=== PATIENT | male | born 1985 | race Caucasian/White ===

== ENCOUNTER 2017-01-11 14:17 | Emergency (ER) | payer OTHER ==
[2017-01-11] MEDS ORDERED: KETOROLAC 60 MG/2 ML VIAL IM STA (14:53)
--- NOTE | 2017-01-11 14:53 | ED Physician Documentation ---
PD HPI UPPER EXT INJURY - Stated complaint Stated Complaint: SHOULDER PX - Chief complaint Chief Complaint: Ext Problem - History obtained from History obtained from: Patient - History of Present Illness Location: Right, Shoulder Type of injury: Fall Where [place] occurred: [place] Timing - onset: How many hours ago (6) Timing - duration: Hours (6) Timing - details: Abrupt onset Pain level max: 7 Pain level now: 5 Improved by: Rest Worsened by: Moving, Palpating Associated symptoms: No: Weakness, Numbness, Tingling, Swelling Contributing factors: No: Anticoagulated, Prior ortho surgery Similar symptoms before: Has not had sx before Recently seen: Not recently seen Review of Systems Neurologic: denies: Focal weakness, Numbness PD PAST MEDICAL HISTORY - Past Medical History Past Medical History: No - Past Surgical History Past Surgical History: No - Present Medications Home Medications: Ambulatory Orders Medication Instructions Recorded Confirmed Ibuprofen [Motrin] 800 mg PO Q8H PRN #30 tablet 01/11/17 Pantoprazole Sodium [Protonix] 20 mg PO DAILY 01/11/17 01/11/17 - Allergies Allergies/Adverse Reactions: Allergies Allergy/AdvReac Type Severity Reaction Status Date / Time No Known Drug Allergies Allergy Verified 01/11/17 14:24 - Social History Does the pt smoke?: No Smoking Status: Never smoker Does the pt drink ETOH?: No Does the pt have substance abuse?: No - Immunizations Immunizations are current?: Yes - POLST Patient has POLST: No PD ED PE NORMAL - Vitals Vital signs reviewed: Yes - General General: Alert and oriented X 3, No acute distress - HEENT HEENT: Moist mucous membranes - Neck Neck: Supple, no meningeal sign - Cardiac Cardiac: RRR - Respiratory Respiratory: No respiratory distress, Clear bilaterally - Derm Derm: Warm and dry - Extremities Extremities: Other (R shoulder - TTP over the distal clavicle. NVI. Limited ROM 2/2 Pain. Axillary nerve intact. ) - Neuro Neuro: Alert and oriented X 3 - Psych Psych: Normal mood, Normal affect Results - Vitals Vitals: Vital Signs - 24 hr 01/11/17 01/11/17 14:21 16:10 Temperature 36.5 C Heart Rate 80 82 Respiratory 14 Rate Blood Pressure 130/81 H 128/80 O2 Saturation 100 Oxygen O2 Source Room air - Rads (name of study) R shoulder xray Radiology: Prelim report reviewed, EMP read contemporaneously, See rad report ( Normal shoulder radiography. ) PD MEDICAL DECISION MAKING - ED course Complexity details: reviewed results, re-evaluated patient, considered differential, d/w patient ED course: Patient is a 31-year-old male who presents to the emergency department after falling and landing on the right shoulder today. No acute findings on x-ray. He was already placed in a sling at the [facility]. Will place on NSAIDs for home and follow-up with his doctor. Patient counseled regarding signs and symptoms for which I believe and urgent re-evaluation would be necessary. Patient with good understanding of and agreement to plan and is comfortable going home at this time This document was made in part using voice recognition software. While efforts are made to proofread this document, sound alike and grammatical errors may occur. Departure - Departure Disposition: 01 Home, Self Care Clinical Impression: Shoulder contusion Qualifiers: Encounter type: initial encounter Laterality: right Qualified Code(s): S40.011A - Contusion of right shoulder, initial encounter Condition: Good Instructions: ED Contusion Shoulder Follow-Up: your,doctor in 1 week [Other] Prescriptions: Ibuprofen [Motrin] 800 mg PO Q8H PRN #30 tablet PRN Reason: PAIN &/OR FEVER Comments: Return if you worsen. Wear the sling for the next 2-3 days and then follow up with your doctor for further care. Discharge Date/Time: 01/11/17 16:10
[2017-01-11] MEDS ORDERED: KETOROLAC 60 MG/2 ML VIAL ONE (15:05)
--- NOTE | 2017-01-11 15:45 | XRAY Preliminary Report ---
Exam: XR Shoulder 3 View RT IMPRESSION: Normal shoulder radiography. [facility] SITE ID: [id number]
--- NOTE | 2017-01-11 15:48 | XRAY Report ---
EXAM: RIGHT SHOULDER RADIOGRAPHY EXAM DATE: 01/11/2017 03:21 PM. CLINICAL HISTORY: Fall, R shoulder pain. COMPARISON: None. TECHNIQUE: 3 views. FINDINGS: Bones: Normal. No fracture or bone lesion. Joints: The glenohumeral and acromioclavicular joints are normal. Soft tissues: The visualized hemithorax is unremarkable. No soft tissue swelling. IMPRESSION: Normal shoulder radiography. [facility] Referring Provider Line: [phone] SITE ID: [id number]
[2017-01-11 16:11] VITALS: BP 128/80
== END 2017-01-11 16:10 | disposition home or self-care (01) ==
LOC: ED 14:17
DX: S40.011A Contusion of right shoulder, initial encounter (principal); W19.XXXA Unspecified fall, initial encounter; Y93.74 Activity, frisbee; Y92.830 Public park as the place of occurrence of the external cause
CPT/HCPCS: 96372; 99283

== ENCOUNTER 2019-05-07 14:05 | Emergency (ER) | payer OTHER ==
--- NOTE | 2019-05-07 14:16 | ED Physician Documentation ---
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 He was in an office setting without toxins etc. around. This was around 1130. He started to feel, some right sided weakness and numbness, and now just feels confused and out of it. This is never happened to him before. Is not associated with headache or nausea. No visual difficulties. He has mild right-sided chest pressure which is not painful. No recent travel. He does not have any health problems or take any medications.) Review of Systems Ten Systems: 10 systems reviewed and negative Constitutional: denies: Fever, Chills Eyes: denies: Loss of vision, Decreased vision, Photophobia, Discharge, Irritation Nose: denies: Rhinorrhea / runny nose, Congestion Throat: denies: Dental pain / toothache, Sore throat Cardiac: denies: Chest pain / pressure, Palpitations Respiratory: denies: Dyspnea, Cough GI: denies: Abdominal Pain, Nausea, Vomiting PD PAST MEDICAL HISTORY - Past Surgical History Past Surgical History: No - Allergies Allergies/Adverse Reactions: Allergies Allergy/AdvReac Type Severity Reaction Status Date / Time No Known Drug Allergies Allergy Verified 05/07/19 14:13 - Social History Does the pt smoke?: No Smoking Status: Never smoker Does the pt drink ETOH?: No Does the pt have substance abuse?: No - Immunizations Immunizations are current?: Yes - POLST Patient has POLST: No PD ED PE NORMAL - Vitals Vital signs reviewed: Yes - General General: Alert and oriented X 3, No acute distress - HEENT HEENT: PERRL, EOMI - Neck Neck: Supple, no meningeal sign, No bony TTP - Cardiac Cardiac: RRR, No murmur - Respiratory Respiratory: No respiratory distress, Clear bilaterally - Abdomen Abdomen: Normal bowel sounds, Soft, Non tender - Back Back: No CVA TTP, No spinal TTP - Derm Derm: Normal color, Warm and dry - Neuro Neuro: Alert and oriented X 3, No motor deficit, No sensory deficit, Normal speech, Other (NIH stroke scale equals 0) Eye Opening: Spontaneous Motor: Obeys Commands Verbal: Oriented GCS Score: 15 - Psych Psych: Normal mood, Normal affect Results - Vitals Vitals: Vital Signs - 24 hr 05/07/19 14:08 Temperature 36.8 C Heart Rate 84 Respiratory 18 Rate Blood Pressure 167/96 H O2 Saturation 98 Oxygen O2 Source Room air - EKG (time done) 1419 Rate: Rate (enter#) (78) Rhythm: NSR Angie: Normal Intervals: Normal CA QRS: Normal Ischemia: Normal ST segments Computer interpretation: Agree with computer - Labs Labs: Laboratory Tests 05/07/19 05/07/19 05/07/19 14:38 14:38 14:38 WBC 6.7 RBC 4.97 Hgb 16.0 Hct 45.2 MCV 90.9 MCH 32.2 H MCHC 35.4 RDW 12.0 Plt Count 211 MPV 9.8 Neut # (Auto) 5.2 Lymph # (Auto) 1.0 L Stark # (Auto) 0.4 Eos # (Auto) 0.0 Baso # (Auto) 0.0 Absolute Nucleated RBC 0.00 Nucleated RBC % 0.0 VBG pH VBG pCO2 VBG pO2 VBG HCO3 VBG Total CO2 VBG O2 Saturation VBG Base Excess Sodium 140 Potassium 4.1 Chloride 103 Carbon Dioxide 29 Anion Gap 8.0 BUN 13 Creatinine 1.1 Estimated GFR (MDRD) 77 L Glucose 114 H Calcium 8.9 Total Bilirubin 0.5 AST 19 ALT 16 Alkaline Phosphatase 48 Total Protein 7.6 Albumin 4.7 Globulin 2.9 Albumin/Globulin Ratio 1.6 Lipase 38 TSH 2.05 Salicylates < 6.0 Urine Opiates Screen Ur Oxycodone Screen Urine Methadone Screen Ur Propoxyphene Screen Acetaminophen < 10 L Ur Barbiturates Screen Ur Tricyclics Screen Ur Phencyclidine Scrn Ur Amphetamine Screen U Methamphetamines Scrn U Benzodiazepines Scrn Urine Cocaine Screen U Cannabinoids Screen 05/07/19 05/07/19 14:38 14:50 WBC RBC Hgb Hct MCV MCH MCHC RDW Plt Count MPV Neut # (Auto) Lymph # (Auto) Stark # (Auto) Eos # (Auto) Baso # (Auto) Absolute Nucleated RBC Nucleated RBC % VBG pH 7.330 VBG pCO2 54.9 H VBG pO2 29.1 VBG HCO3 28.3 H VBG Total CO2 30.0 H VBG O2 Saturation 61.5 VBG Base Excess 1.0 Sodium Potassium Chloride Carbon Dioxide Anion Gap BUN Creatinine Estimated GFR (MDRD) Glucose Calcium Total Bilirubin AST ALT Alkaline Phosphatase Total Protein Albumin Globulin Albumin/Globulin Ratio Lipase TSH Salicylates Urine Opiates Screen NEGATIVE Ur Oxycodone Screen NEGATIVE Urine Methadone Screen NEGATIVE Ur Propoxyphene Screen NEGATIVE Acetaminophen Ur Barbiturates Screen NEGATIVE Ur Tricyclics Screen NEGATIVE Ur Phencyclidine Scrn NEGATIVE Ur Amphetamine Screen NEGATIVE U Methamphetamines Scrn NEGATIVE U Benzodiazepines Scrn NEGATIVE Urine Cocaine Screen NEGATIVE U Cannabinoids Screen NEGATIVE - Rads (name of study) CT Head Radiology: EMP read contemporaneously (NAD) PD MEDICAL DECISION MAKING - ED course ED course: This is a young man who had a episode of dizziness and altered mental status today, however his examination and diagnostics are without pertinent positive findings. He felt completely better pretty much without any specific intervention. Departure - Departure Disposition: 01 Home, Self Care Clinical Impression: Episode of dizziness, Delirium Condition: Good Record reviewed to determine appropriate education?: Yes Instructions: ED Dizziness [facility] Comments: The cause of what happened today is unclear. CAT scan of your head, all the labs and your exam are normal. Return for new worsening symptoms. Your blood pressure was elevated today on check into the emergency department. This does not mean that you have hypertension, it is a common phenomenon to come to the emergency department and have elevated blood pressure. I recommend that you see your primary care physician within the week to have it rechecked when you are feeling better.
[2019-05-07 14:52] LABS: BASOPHILS % (AUTO) 0.4 %; EOSINOPHILS % (AUTO) 0.1 %; LYMPHOCYTES % (AUTO) 15.3 %; MEAN CORPUSCULAR HEMOGLOBIN 32.2 pg (27.0-31.0); MEAN CORPUSCULAR HGB CONC 35.4 g/dL (32.0-36.0); MEAN CORPUSCULAR VOLUME 90.9 fL (80.0-94.0); MEAN PLATELET VOLUME 9.8 fL (7.4-11.4); MONOCYTES # (AUTO) 0.4 10^3/uL (0.0-1.0); MONOCYTES % (AUTO) 6.5 %; NEUTROPHILS # (AUTO) 5.2 10^3/uL (1.5-6.6); NEUTROPHILS % (AUTO) 77.3 %; PLT - PLATELET COUNT 211 10^3/uL (130-450); RED BLOOD COUNT 4.97 10^6/uL (4.70-6.10); WHITE BLOOD COUNT 6.7 x10^3/uL (4.8-10.8)
--- NOTE | 2019-05-07 14:54 | CT Report ---
Reason: altered Procedure Date: 05/07/2019 Accession Number: [id number] / [id number] Procedure: CT - HEAD WO CPT Code: Final Report FULL RESULT: EXAM: CT HEAD EXAM DATE: 05/07/2019 02:28 PM. CLINICAL HISTORY: Altered. Dizziness. COMPARISON: None. TECHNIQUE: Multiaxial CT images were obtained from the foramen magnum to the vertex. Reformats: Sagittal and coronal. IV contrast: None. In accordance with CT protocol optimization, one or more of the following dose reduction techniques were utilized for this exam: automated exposure control, adjustment of mA and/or KV based on patient size, or use of iterative reconstructive technique. FINDINGS: Parenchyma: No intraparenchymal hemorrhage. No evidence of mass, midline shift, or CT findings of infarction. Kraus-white differentiation is distinct. Extraaxial Spaces: Normal for age. No subdural or epidural collections identified. Ventricles: Normal in size and position. Sinuses and Orbits: Imaged paranasal sinuses, orbits, and mastoids show no significant abnormality. Bones: No evidence of fracture or calvarial defect. Other: None. IMPRESSION: Normal head CT. [facility]
[2019-05-07 15:00] LABS: MUDS CUTOFF CONCENTRATIONS CUTOFF CONC BELOW:
[2019-05-07 15:02] LABS: VBG PCO2 54.9 mmHg (41-51); VBG PH 7.33 (7.31-7.41); VBG PO2 29.1 mmHg (25-47)
[2019-05-07 15:07] LABS: ACETAMINOPHEN < 10 ug/mL (10-30); ALBUMIN 4.7 g/dL (3.2-5.5); ALBUMIN/GLOBULIN RATIO 1.6 (1.0-2.2); ALKALINE PHOSPHATASE 48 IU/L (42-121); ALT ALANINE AMINOTRANSFERASE 16 IU/L (10-60); AST ASPARTATE AMINOTRANSFERASE 19 IU/L (10-42); BILIRUBIN,TOTAL 0.5 mg/dL (0.2-1.0); BUN - BLOOD UREA NITROGEN 13 mg/dL (6-20); CALCIUM 8.9 mg/dL (8.5-10.3); CARBON DIOXIDE - CO2 29 mmol/L (21-32); CHLORIDE 103 mmol/L (101-111); CREATININE 1.1 mg/dL (0.6-1.2); GFR - MDRD 77 (>89); GLUCOSE 114 mg/dL (70-100); LIPASE 38 U/L (22-51); SALICYLATE < 6.0 mg/dL; SODIUM 140 mmol/L (135-145); TOTAL PROTEIN 7.6 g/dL (6.7-8.2)
[2019-05-07 15:22] LABS: AMPHETAMINE SCREEN,URINE NEGATIVE (NEGATIVE); BENZODIAZEPINES SCREEN, URINE NEGATIVE (NEGATIVE); COCAINE SCREEN URINE NEGATIVE (NEGATIVE); METHADONE SCREEN, URINE NEGATIVE (NEGATIVE); METHAMPHETAMINES SCREEN, URINE NEGATIVE (NEGATIVE); OPIATE SCREEN, URINE NEGATIVE (NEGATIVE); OXYCODONE SCREEN, URINE NEGATIVE (NEGATIVE); PROPOXYPHENE SCREEN, URINE NEGATIVE (NEGATIVE); TRICYCLIC ANTIDEPRESSANT,URINE NEGATIVE (NEGATIVE)
[2019-05-07 15:45] VITALS: BP 99/81
== END 2019-05-07 15:50 | disposition home or self-care (01) ==
LOC: EDUNIT# → ED 14:05
DX: R42 Dizziness and giddiness (principal); R41.0 Disorientation, unspecified; R03.0 Elevated blood-pressure reading, without diagnosis of hypertension
CPT/HCPCS: 36415; 70450; 80053; 80306; 80307; 80329; 82803; 83690; 84443; 85025; 93005; 99283

== ENCOUNTER 2019-07-23 06:07 | Outpatient (CLI) | payer OTHER ==
[2019-07-23] MEDS ORDERED: GADOBUTROL 10 MMOL/10 ML VIAL ONE (07:20)
[2019-07-23] MEDS ORDERED: GADOBUTROL 10 MMOL/10 ML VIAL IVP ONE (09:24)
--- NOTE | 2019-07-23 10:21 | MRI Report ---
Reason: PAIN IN LEG Procedure Date: 07/23/2019 Accession Number: [id number] / [id number] Procedure: MRI - Cervical Spine W/WO CPT Code: Final Report FULL RESULT: EXAM: MRI CERVICAL SPINE WITHOUT AND WITH CONTRAST EXAM DATE: 07/23/2019 09:54 AM. CLINICAL HISTORY: Extremity weakness COMPARISON: None. TECHNIQUE: Multiplanar, multisequence T1-weighted and fluid-sensitive sequences of the cervical spine before and after administration of intravenous contrast. Other: None. IV contrast: Yes, without and with 8 mL Gadavist. FINDINGS: Neurologic Structures: The visualized posterior fossa structures are unremarkable. No signal abnormality in the visualized spinal cord. Alignment: No scoliosis or spondylolisthesis. Bone Marrow: No gross fractures or bone lesions. No marrow edema or abnormal enhancement. Interspace Levels/Facets: C1-C2: Unremarkable. C2-C3: Disk unremarkable. Mild facet hypertrophy. No central canal or neural foraminal narrowing. C3-C4: Unremarkable. C4-C5: Unremarkable. C5-C6: There is a mild disk bulge. There is mild central canal narrowing. There is mild left neural foraminal narrowing. C6-C7: There is a mild disk bulge. There is mild central canal narrowing. No neural foraminal narrowing. C7-T1: Disk unremarkable. No central canal narrowing. Mild bilateral facet hypertrophy. No significant neural foraminal narrowing. Spinal Canal: No enhancing lesions within the spinal canal. No epidural abscess. Musculature: Normal. No edema, enhancement, or fatty atrophy. Other: The paravertebral and prevertebral soft tissues are normal. IMPRESSION: 1. C5-C6 and C6-C7 mild disk bulges with mild central canal narrowing. 2. Mild left C5-C6 neural foraminal narrowing. 3. No abnormal enhancement. No cord signal abnormality. [facility]
--- NOTE | 2019-07-23 10:24 | MRI Report ---
Reason: PAIN IN LEG Procedure Date: 07/23/2019 Accession Number: [id number] / [id number] Procedure: MRI - Thoracic Spine W/WO CPT Code: Final Report FULL RESULT: EXAM: MRI THORACIC SPINE WITHOUT AND WITH CONTRAST EXAM DATE: 07/23/2019 09:55 AM. CLINICAL HISTORY: Extremity weakness COMPARISONS: None. TECHNIQUE: Multiplanar, multisequence T1-weighted and fluid-sensitive sequences of the thoracic spine from C7 to L1 before and after administration of intravenous contrast. Other: None. IV contrast: Yes, without and with 8 mL Gadavist. FINDINGS: Spinal Cord: No signal abnormality in the visualized spinal cord. Alignment: No scoliosis or spondylolisthesis. Bone Marrow: No gross fractures or bone lesion. No bone marrow edema or abnormal enhancement. Disk Levels/Facets: No focal disk protrusion. No central canal or neural foraminal narrowing. Spinal Canal: No enhancing masses within the spinal canal. No epidural abscess. Musculature: Normal. No edema, enhancement, or fatty atrophy. Other: The visualized lungs, mediastinum, and abdominal cavity are unremarkable. IMPRESSION: Unremarkable thoracic spine MRI. No cord signal abnormality. No abnormal enhancement. [facility]
== END 2019-07-23 06:08 | disposition home or self-care (01) ==
LOC: DI 06:07
PROVIDERS: ATTEND Family Medicine
DX: M47.812 Spondylosis without myelopathy or radiculopathy, cervical region (principal); M50.822 Other cervical disc disorders at C5-C6 level
CPT/HCPCS: 72156; 72157; A9585

== ENCOUNTER 2019-07-24 07:12 | Outpatient (CLI) | payer OTHER ==
[2019-07-24] MEDS ORDERED: GADOBUTROL 10 MMOL/10 ML VIAL ONE (07:23)
[2019-07-24] MEDS ORDERED: GADOBUTROL 10 MMOL/10 ML VIAL IVP ONE (08:00)
--- NOTE | 2019-07-24 11:25 | MRI Report ---
Reason: PAIN IN LEG Procedure Date: 07/24/2019 Accession Number: [id number] / [id number] Procedure: MRI - Lumbar Spine W/WO CPT Code: Final Report FULL RESULT: EXAM: MRI LUMBAR SPINE WITHOUT AND WITH CONTRAST EXAM DATE: 07/24/2019 08:09 AM. CLINICAL HISTORY: PAIN IN LEG. Bilateral leg weakness since April 2019. COMPARISONS: None. TECHNIQUE: Multiplanar, multisequence T1-weighted and fluid-sensitive sequences of the lumbar spine from T12 to S1 before and after administration of intravenous contrast. Other: None. IV contrast: 8 cc GADAVIST . FINDINGS: Neurologic Structures: The conus terminates at L1. The conus medullaris and cauda equina are unremarkable. Alignment: No scoliosis or spondylolisthesis. Bone Marrow: Five [id number] lumbar vertebral bodies are assumed. No gross fractures or bone lesions. No bone marrow replacement or abnormal enhancement. Disk Levels/Facets: T12-L1: Unremarkable. L1-L2: Unremarkable. L2-L3: Unremarkable. L3-L4: Unremarkable. L4-L5: Unremarkable. L5-S1: Unremarkable. Spinal Canal: No enhancing masses within the spinal canal. No epidural abscess. Musculature: Normal. No edema, abnormal enhancement, or fatty atrophy. Other: The visualized retroperitoneum is unremarkable. IMPRESSION: Unremarkable lumbar spine MRI. No abnormal enhancement. Comment: The following findings are so common in adults without low back pain that while we report their presence, they must be interpreted with caution and in the context of the clinical situation. (Reference Ceciliovik et al, Spine 2001) Prevalence of findings in patients without low back pain: Disk degeneration (any evidence): 92% Disk desiccation/T2 signal loss: 83% Disk height loss: 56% Disk bulge: 64% Disk protrusion: 32% Annular tear/high intensity zone: 38% [facility]
== END 2019-07-24 07:13 | disposition home or self-care (01) ==
LOC: DI 07:12
PROVIDERS: ATTEND Family Medicine
DX: M79.606 Pain in leg, unspecified (principal); R29.90 Unspecified symptoms and signs involving the nervous system
CPT/HCPCS: 72158; A9585

== ENCOUNTER 2019-07-28 13:00 | Emergency (ER) | payer OTHER ==
[2019-07-28 13:14] VITALS: BP 146/91
--- NOTE | 2019-07-28 13:36 | ED Physician Documentation ---
History of Present Illness - Stated complaint Stated Complaint: MUSCLE PX - Chief complaint Chief Complaint: General - History obtained from History obtained from: Patient - History of Present Illness Timing: Other (4 months) Pain level max: 7 Pain level now: 6 - Additonal information Additional information: 34-year-old male states that he has had burning sensation to his bilateral biceps and calves for the past 4 months. He has seen his doctor for this. Saw neurology for this. Had a normal cervical, thoracic and lumbar spine MRI recently. He is being referred to rheumatology for further work-up. He is only on Motrin at home. He is requesting something else for his symptoms. No changes to his symptoms. No fevers. No weakness. Nothing makes it better or worse Review of Systems Constitutional: denies: Fever, Chills Cardiac: denies: Chest pain / pressure Respiratory: denies: Cough Skin: denies: Rash Musculoskeletal: denies: Neck pain, Back pain Neurologic: denies: Headache PD PAST MEDICAL HISTORY - Past Surgical History Past Surgical History: No - Present Medications Home Medications: Ambulatory Orders Medication Instructions Recorded Confirmed Cyclobenzaprine [Flexeril] 10 mg PO TID PRN #20 tablet 07/28/19 Gabapentin 300 mg PO TID #60 capsule 07/28/19 Ibuprofen [Ibu] 600 mg PO BID PRN 07/28/19 07/28/19 predniSONE [Deltasone] 10 mg PO [id number] #42 tab 07/28/19 - Allergies Allergies/Adverse Reactions: Allergies Allergy/AdvReac Type Severity Reaction Status Date / Time No Known Drug Allergies Allergy Verified 07/28/19 13:09 - Social History Does the pt smoke?: No Smoking Status: Never smoker Does the pt drink ETOH?: No Does the pt have substance abuse?: No - Immunizations Immunizations are current?: Yes - POLST Patient has POLST: No PD ED PE NORMAL - Vitals Vital signs reviewed: Yes - General General: Alert and oriented X 3, No acute distress - HEENT HEENT: PERRL, Moist mucous membranes - Neck Neck: Supple, no meningeal sign - Cardiac Cardiac: RRR - Respiratory Respiratory: No respiratory distress, Clear bilaterally - Abdomen Abdomen: Soft, Non tender, Non distended - Derm Derm: Warm and dry - Extremities Extremities: No edema, No calf tenderness / cord - Neuro Neuro: Alert and oriented X 3, stocklayer 2-12 intact, No motor deficit, No sensory deficit, Normal speech Eye Opening: Spontaneous Motor: Obeys Commands Verbal: Oriented GCS Score: 15 - Psych Psych: Normal mood, Normal affect Results - Vitals Vitals: Vital Signs - 24 hr 07/28/19 13:09 Temperature 36.9 C Heart Rate 83 Respiratory 16 Rate Blood Pressure 146/91 H O2 Saturation 97 Oxygen O2 Source Room air PD MEDICAL DECISION MAKING - ED course Complexity details: considered differential, d/w patient ED course: Patient states that he has had extensive blood work and imaging performed. Will not repeat this today. We will trial him on muscle relaxants, steroid taper and gabapentin to see if this helps his symptoms at all. He will likely benefit from his rheumatology appointment. Patient is well-appearing, nontoxic. Afebrile. Patient counseled regarding signs and symptoms for which I believe and urgent re-evaluation would be necessary. Patient with good understanding of and agreement to plan and is comfortable going home at this time This document was made in part using voice recognition software. While efforts are made to proofread this document, sound alike and grammatical errors may occur. Departure - Departure Disposition: 01 Home, Self Care Clinical Impression: Muscle pain Condition: Good Instructions: ED Acute Pain [facility] Follow-Up: STEPH RUBIO MD [Primary Care Provider] - Within 1 week Prescriptions: Cyclobenzaprine [Flexeril] 10 mg PO TID PRN #20 tablet PRN Reason: Spasms Gabapentin 300 mg PO TID #60 capsule predniSONE [Deltasone] 10 mg PO [id number] #42 tab Comments: The cause of your symptoms is unclear today. It is important that you follow-up with rheumatology for further evaluation. We will trial you on medications to see if this helps your symptoms.
== END 2019-07-28 13:44 | disposition home or self-care (01) ==
LOC: ED 13:00
DX: M79.18 Myalgia, other site (principal)
CPT/HCPCS: 99283; 99284

== ENCOUNTER 2020-06-22 19:19 | Emergency (ER) | payer OTHER ==
--- NOTE | 2020-06-22 19:35 | ED Physician Documentation ---
PD HPI URI - Stated complaint Stated Complaint: CHEST PX - Chief complaint Chief Complaint: Cardiac - History obtained from History obtained from: Patient - History of Present Illness Timing details: Gradual onset, Intermittant Pain level max: 5 Pain level now: 3 Associated symptoms: No: Fever, Chills, Sweats, Ear pain, Nasal congestion, Rhinorrhea, Sinus pain, Sore throat, Swollen nodes, Dry cough Improves by: Rest Worsened by: Activity, Other (palpation) - Additional information Additional information: 35-year-old male with a history of anxiety presents to the emergency department stating that he was Covid positive last month. States 2 days ago he felt fatigued and tired. Today he had chest pain and came into the emergency department. The pain is worse with bending over, palpation and coughing. No fevers. No chills. Pain is sharp and stabbing Review of Systems Constitutional: denies: Fever, Chills Throat: denies: Sore throat Cardiac: denies: Chest pain / pressure Respiratory: denies: Dyspnea, Wheezing GI: denies: Vomiting, Diarrhea Musculoskeletal: denies: Neck pain, Back pain Neurologic: denies: Headache PD PAST MEDICAL HISTORY - Past Medical History Cardiovascular: None Respiratory: None Neuro: None Endocrine/Autoimmune: None GI: GERD : None HEENT: None Psych: Panic attacks Musculoskeletal: Chronic back pain, Other Derm: None - Past Surgical History Past Surgical History: No General: Colonoscopy - Present Medications Home Medications: Ambulatory Orders Medication Instructions Recorded Confirmed Cyclobenzaprine [Flexeril] 10 mg PO TID PRN #20 tablet 07/28/19 06/22/20 Escitalopram [Lexapro] 20 mg PO DAILY 06/22/20 06/22/20 - Allergies Allergies/Adverse Reactions: Allergies Allergy/AdvReac Type Severity Reaction Status Date / Time No Known Drug Allergies Allergy Verified 06/22/20 19:28 - Social History Does the pt smoke?: No Smoking Status: Former smoker Does the pt drink ETOH?: No Does the pt have substance abuse?: No - Immunizations Immunizations are current?: Yes - POLST Patient has POLST: No PD ED PE NORMAL - Vitals Vital signs reviewed: Yes - General General: Alert and oriented X 3, No acute distress - HEENT HEENT: Moist mucous membranes - Neck Neck: Supple, no meningeal sign - Cardiac Cardiac: RRR - Respiratory Respiratory: No respiratory distress, Clear bilaterally - Derm Derm: Warm and dry - Extremities Extremities: No edema, No calf tenderness / cord - Neuro Neuro: Alert and oriented X 3 - Psych Psych: Normal mood, Normal affect - Free text exam Free text exam: Tender to palpation across the anterior chest wall bilaterally. Over the costochondral cartilage. Reproduces pain Results - Vitals Vitals: Vital Signs - 24 hr 06/22/20 06/22/20 19:22 21:01 Temperature 36.9 C 36.4 C L Heart Rate 100 82 Respiratory 16 17 Rate Blood Pressure 144/74 H 134/91 H O2 Saturation 96 99 Oxygen O2 Source Room air - EKG (time done) 1926 Rate: Rate (enter#) (96) Rhythm: NSR [place]: Normal Intervals: Normal [place] QRS: Normal Ischemia: Normal ST segments - Labs Labs: Laboratory Tests 06/22/20 06/22/20 06/22/20 20:08 20:08 20:08 WBC 6.8 RBC 4.83 Hgb 15.1 Hct 43.4 MCV 89.9 MCH 31.3 H MCHC 34.8 RDW 11.9 L Plt Count 220 MPV 9.5 Neut # (Auto) 4.0 Lymph # (Auto) 2.0 Mcdonald # (Auto) 0.7 Eos # (Auto) 0.0 Baso # (Auto) 0.0 Absolute Nucleated RBC 0.00 Nucleated RBC % 0.0 Sodium 142 Potassium 3.9 Chloride 105 Carbon Dioxide 26 Anion Gap 11.0 BUN 15 Creatinine 1.0 Estimated GFR (MDRD) 85 L Glucose 91 Calcium 9.4 Total Bilirubin 0.6 AST 22 ALT 26 Alkaline Phosphatase 50 Troponin I High Sens 2.3 Total Protein 7.6 Albumin 4.7 Globulin 2.9 Albumin/Globulin Ratio 1.6 Lipase 47 - Rads (name of study) cxr Radiology: Prelim report reviewed, EMP read contemporaneously, See rad report (no acute disease) PD MEDICAL DECISION MAKING - ED course Complexity details: reviewed old records, reviewed results, re-evaluated patient, considered differential, d/w patient ED course: Patient with what appears to be costochondritis. No evidence of PE, ACS, pneumothorax, aortic dissection. No significant lab abnormalities. No abnormalities on chest x-ray. Normal EKG. Will place him on Motrin and have him follow-up with his PCP for further care. Patient counseled regarding signs and symptoms for which I believe and urgent re-evaluation would be necessary. Patient with good understanding of and agreement to plan and is comfortable going home at this time This document was made in part using voice recognition software. While efforts are made to proofread this document, sound alike and grammatical errors may occur. Departure - Departure Disposition: 01 Home, Self Care Clinical Impression: Costochondritis, acute, Atypical chest pain Condition: Good Instructions: ED Chest Pain Costochondritis Follow-Up: Dayami Benson MD [Primary Care Provider] - Within 1 week Comments: This appears to be related to costochondritis. Likely postviral. Your testing is otherwise normal. You can use Motrin or Tylenol as needed for pain. Follow- up with your doctor for further care.
[2020-06-22 20:14] LABS: BASOPHILS % (AUTO) 0.3 %; EOSINOPHILS % (AUTO) 0.4 %; HGB - HEMOGLOBIN 15.1 g/dL (14.0-18.0); MEAN CORPUSCULAR HEMOGLOBIN 31.3 pg (27.0-31.0); MEAN CORPUSCULAR HGB CONC 34.8 g/dL (32.0-36.0); MEAN CORPUSCULAR VOLUME 89.9 fL (80.0-94.0); MEAN PLATELET VOLUME 9.5 fL (7.4-11.4); MONOCYTES # (AUTO) 0.7 10^3/uL (0.0-1.0); MONOCYTES % (AUTO) 9.7 %; NEUTROPHILS % (AUTO) 59.3 %; PLT - PLATELET COUNT 220 10^3/uL (130-450); RED BLOOD COUNT 4.83 10^6/uL (4.70-6.10); RED CELL DISTRIBUTION WIDTH 11.9 % (12.0-15.0); WHITE BLOOD COUNT 6.8 x10^3/uL (4.8-10.8)
--- NOTE | 2020-06-22 20:14 | XRAY Report ---
PROCEDURE: Chest 1 View X-Ray INDICATIONS: Chest Pain TECHNIQUE: One view of the chest was acquired. COMPARISON: 01/12/2020 FINDINGS: Surgical changes and devices: None. Lungs and pleura: No pleural effusions or pneumothorax. Lungs are clear. Mediastinum: Mediastinal contours appear normal. Heart size is normal. Bones and chest wall: No suspicious bony lesions. Overlying soft tissues appear unremarkable. IMPRESSION: Normal chest. Reviewed by: Ligia Ann MD on 06/22/2020 8:13 PM PST Approved by: Ligia Ann MD on 06/22/2020 8:13 PM PST Station ID: [id number]
[2020-06-22 20:41] LABS: ALBUMIN 4.7 g/dL (3.2-5.5); ALBUMIN/GLOBULIN RATIO 1.6 (1.0-2.2); BILIRUBIN,TOTAL 0.6 mg/dL (0.2-1.0); CALCIUM 9.4 mg/dL (8.5-10.3); TOTAL PROTEIN 7.6 g/dL (6.7-8.2)
[2020-06-22 21:03] VITALS: BP 134/91
== END 2020-06-22 21:23 | disposition home or self-care (01) ==
LOC: ED 19:19
DX: M94.0 Chondrocostal junction syndrome [Tietze] (principal); R07.89 Other chest pain; Z87.891 Personal history of nicotine dependence
CPT/HCPCS: 36415; 80053; 83690; 84484; 85025; 93005; 99284

== ENCOUNTER 2020-10-14 11:48 | Emergency (ER) | payer OTHER ==
[2020-10-14 12:44] VITALS: BP 138/78
[2020-10-14] MEDS ORDERED: ACETAMINOPHEN 325 MG TABLET PO STA (12:56)
--- NOTE | 2020-10-14 12:58 | ED Physician Documentation ---
History of Present Illness - Stated complaint Stated Complaint: DIZZINESS - Chief complaint Chief Complaint: General - History obtained from History obtained from: Patient - Additonal information Additional information: 35yM with pmh anxiety and fibromyalgia p/w anxiety this morning a/w two episodes of dizziness occurring while at work. 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 the dizziness has now resolved. denies cp, sob, nausea, neuro deficits. denies fever. mild frontal headache that is nonradiating, aching, gradual onset. Review of Systems Ten Systems: 10 systems reviewed and negative Constitutional: denies: Fever Eyes: denies: Loss of vision, Photophobia Cardiac: denies: Chest pain / pressure Respiratory: denies: Dyspnea GI: denies: Abdominal Pain, Nausea Skin: denies: Rash Neurologic: denies: Focal weakness, Numbness Psychiatric: reports: Anxiety PD PAST MEDICAL HISTORY - Past Medical History Past Medical History: Yes Cardiovascular: None Respiratory: None Neuro: None Endocrine/Autoimmune: None GI: GERD : None HEENT: None Psych: Panic attacks Musculoskeletal: Fibromyalgia, Chronic back pain Derm: None - Past Surgical History Past Surgical History: No General: Colonoscopy - Present Medications Home Medications: Ambulatory Orders Medication Instructions Recorded Confirmed Cyclobenzaprine [Flexeril] 10 mg PO TID PRN #20 tablet 07/28/19 06/22/20 Escitalopram [Lexapro] 20 mg PO DAILY 06/22/20 06/22/20 Gabapentin [Neurontin] 600 mg TID 10/14/20 10/14/20 - Allergies Allergies/Adverse Reactions: Allergies Allergy/AdvReac Type Severity Reaction Status Date / Time No Known Drug Allergies Allergy Verified 10/14/20 11:59 - Social History Does the pt smoke?: No Smoking Status: Never smoker Does the pt drink ETOH?: No Does the pt have substance abuse?: No - Immunizations Immunizations are current?: Yes - POLST Patient has POLST: No PD ED PE NORMAL - Vitals Vital signs reviewed: Yes - General General: Alert and oriented X 3, No acute distress, Well developed/nourished - HEENT HEENT: Atraumatic, PERRL, EOMI - Neck Neck: Supple, no meningeal sign - Cardiac Cardiac: RRR - Respiratory Respiratory: No respiratory distress, Clear bilaterally - Abdomen Abdomen: Non tender, Non distended - Back Back: No CVA TTP - Derm Derm: Normal color, Warm and dry - Extremities Extremities: No deformity - Neuro Neuro: Alert and oriented X 3 - Psych Psych: Normal mood, Normal affect Results - Vitals Vitals: Vital Signs - 24 hr 10/14/20 10/14/20 11:53 12:43 Temperature 36.4 C L Heart Rate 80 Heart Rate [ 64 Sitting] Heart Rate [ 78 Standing] Heart Rate [ 54 L Supine] Respiratory 20 Rate Blood Pressure 162/72 H Blood Pressure 136/92 H [Sitting] Blood Pressure 134/94 H [Standing] Blood Pressure 138/78 H [Supine] O2 Saturation 98 Oxygen O2 Source Room air - Labs Labs: Laboratory Tests 10/14/20 12:52 POC Whole Bld Glucose 111 H PD MEDICAL DECISION MAKING - ED course ED course: 35yM presents requesting a work note after having acute dizziness and anxiety at work. ekg, fingerstick noncontributory. will dc home with return precautions. f/u [id number]. Departure - Departure Disposition: 01 Home, Self Care Clinical Impression: Lightheadedness, Anxiety Condition: Good Instructions: Headaches Tension Comments: You were seen in the emergency department for headache, lightheadedness, loose stools, and anxiety. Make sure that you stay well-hydrated today and get lots of rest. Take Tylenol 650 mg every 6 hours as needed for pain. Go to your local pharmacy and get Pedialyte or low sugar Gatorade. Return to the emergency department if you experience any new or worsening symptoms symptoms or have other concerns. [place] Forms: Activity restrictions Discharge Date/Time: 10/14/20 13:18
== END 2020-10-14 13:18 | disposition home or self-care (01) ==
LOC: ED 11:48
DX: R42 Dizziness and giddiness (principal); R51.9 Headache, unspecified; F41.9 Anxiety disorder, unspecified; M79.7 Fibromyalgia
CPT/HCPCS: 93005; 99283; A9270

== ENCOUNTER 2020-10-29 13:02 | Outpatient (CLI) | payer OTHER ==
--- NOTE | 2020-10-29 13:41 | SLEEP CARE CONSULTATION ---
Information from patient questionnaire entered by Ailyn Ty. I have reviewed and concur with the information entered by Ailyn Ty. This document represents the service I personally performed and the decisions made by me, Katerine Chamberlain ARNP. History of Present Illness Service Date and Time: 10/29/2020 1302 Reason for Visit: New patient Chief Complaint: reports: Unrefreshed sleep, Snoring, Excessive daytime sleepiness, Observed pauses in breathing, Frequent awakenings at night Date of Onset: 6 years Usual bedtime: 10 pm Time it takes to fall asleep: 30-60 minutes Snores at night: Yes Observed to quit breathing while asleep: Yes Sleeps alone due to snoring: No Number of times waking at night: 3-4 Reasons for waking at night: reports: Choking, Gasping for air, Bathroom, Other (hungry) Toss, Turn, or Twitch while sleeping: Yes Recalls having dreams: Yes Usually gets out of bed at: 6:30 - 7 am Feels refreshed in the morning: No Morning headache: No Sleepy or fatigued during the day: Yes Ever fallen asleep while driving: No Takes day naps: Yes (daily for 1-2 hours) Dreams during day naps: No Prior sleep studies: No Additional HPI information: I had the pleasure of seeing MACK ROSAS today regarding the possibility of him having a sleep disorder. His current complaints are excessive daytime sleepiness, frequent night awakenings, snoring and unrefreshed sleep. He has constant fatigue during the day, not feeling rested in the morning. He had an incident when he woke up gasping for air. He has aspirated with acid reflux a couple of times. He does snore loudly but his does not sleep in separate room. His may have seen him stop breathing while sleeping but he has not asked her about this lately. - Parasomnia Symptoms Ever been unable to move upon waking from sleep: No Walks in sleep: No Talks in sleep: No Ever acted out dreams in sleep: No Ever felt weak in the knees when startled or emotional: Yes Bothered by creepy, crawly, restless sensations in legs: Yes (mainly when laying down, can't get comfortable) Problems with memory or concentration: Yes (concentration for sure due to tiredness) Subjective Initial [place] Sleepiness Scale score: 9 (in 2020) Past Medical History Past Medical History: reports: Fibromyalgia, Anxiety (General anxiety disorder), Depression, Other (heartburn) Social History 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 Patient is and lives in [place]. Have you smoked in the past 12 months: No Cigarettes per day (20/pack): 15 Years of smokin Quit date: 2014 Smoking Pack Years: 10.5 Alcohol use: No Caffeine use: Yes Caffeine amount and frequency: 1 can a day sometimes Family History Family history of sleep disordered breathing: No Family Hx Sleep Apnea: Sibling: Snoring (brother) Allergies and Home Medications Drug allergies reviewed: Yes (NKDA) Home medication list reviewed: Yes Allergy and home medication list: Lexapro Gabapentin Flexeril Prilosec, prn Review of Systems Weight gain over past 5 years: 40 Cardiovascular: reports: chest pain. denies: high blood pressure Respiratory: reports: shortness of breath Gastrointestinal: reports: heartburn Neurological: denies: headaches Psychiatric: reports: anxiety, depression. denies: mood disorder Ear/Nose/Throat: reports: wisdom teeth removed. denies: tonsillectomy Endocrine: reports: sluggishness, too hot or cold Musculoskeletal: reports: joint pain, muscle pain or cramping Physical Exam Blood Pressure: 137/87 Cuff size: wrist Heart Rate: 74 O2 Saturation: 97 Height: 5 ft 8 in Weight: 218 lb Body Mass Index: 33.1 BMI Classification: Obese Neck circumference: 15.30 (inches) Mouth and throat: narrow oropharynx Soft palate: long Hard palate: normal Uvula visualization: 25% Mallampati Class III Tongue: enlarged in size with teeth sanchez on lateral edges Tonsils: 1+ Neck: normal w/o lymphadenopathy or thyromegaly Heart: regular rate and rhythm Lungs: clear bilaterally Impression and Plan 1. Suspected Obstructive Sleep Apnea-Hypopnea Syndrome, as suggested by a history of loud and irregular snoring, observed cessation of breath while asleep, gasping or choking in sleep, frequent awakening during the night, unrefreshed sleep, cognitive impairment, and excessive daytime sleepiness. Narrow oropharynx and obesity are common predisposing factors for obstructive sleep apnea-hypopnea syndrome. I recommend proceeding to polysomnography to confirm the diagnosis and to assess severity. If the patient has significant sleep disordered breathing, a manual CPAP titration study will also be performed to find the optimal treatment pressure. I informed the patient of what the sleep studies involve and after some discussion, obtained agreement to proceed. The pathophysiology of obstructive sleep apnea-hypopnea syndrome was discussed with the patient and health risks of cardiovascular and cerebrovascular disease if not treated. 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 Patient agreed to plan. * Schedule polysomnography +- manual CPAP titration study and return in 1-2 weeks after the study to discuss result and initiate therapy. * Avoid long distance driving or driving when feeling sleepy. * Avoid alcohol, sedative and muscle relaxant around bedtime. * Attempt to lose weight. * Review instructions provided by trained office staff on how to prepare for the sleep study. * Return for follow-up after sleep study completed. Counseling Topics: Weight loss health impact Visit Type: In Office Time Spent with Patient (minutes): 23 Provider Statement: I spent 100% of the Face to Face Visit with the patient with greater than 50% spent counseling the patient and coordination of care.
[2020-10-29 13:42] VITALS: BP 137/87
== END 2020-10-29 13:03 | disposition home or self-care (01) ==
LOC: SC 13:02
PROVIDERS: ATTEND Nurse Practitioner Family
DX: R06.83 Snoring (principal); R06.81 Apnea, not elsewhere classified; G47.8 Other sleep disorders; R41.89 Other symptoms and signs involving cognitive functions and awareness; G47.10 Hypersomnia, unspecified; E66.9 Obesity, unspecified; Z68.33 Body mass index [BMI] 33.0-33.9, adult
CPT/HCPCS: 99203; 99212

== ENCOUNTER 2020-11-27 19:38 | Outpatient (CLI) | payer OTHER | END 2020-11-27 19:39 | disposition home or self-care (01) | LOC: SC 19:38 | PROVIDERS: ATTEND Nurse Practitioner Family | DX: R06.83 Snoring (principal); G47.8 Other sleep disorders; R06.81 Apnea, not elsewhere classified; G47.10 Hypersomnia, unspecified; R41.89 Other symptoms and signs involving cognitive functions and awareness; E66.9 Obesity, unspecified; Z68.33 Body mass index [BMI] 33.0-33.9, adult | CPT/HCPCS: 95810 ==

== ENCOUNTER 2020-12-22 08:19 | Outpatient (CLI) | payer OTHER ==
--- NOTE | 2020-12-22 08:39 | SLEEP CARE CONSULTATION ---
Information from patient questionnaire entered by Ailyn Ty. I have reviewed and concur with the information entered by Ailyn Ty. This document represents the service I personally performed and the decisions made by , Katerine Chamberlain ARNP. History of Present Illness Service Date and Time: 12/22/2020818 Initial [place] Sleepiness Scale score: 9 (in 2020) Current [place] Sleepiness Scale score: 9 Additional HPI information: MACK ROSAS returns for follow up and results of the recently performed polysomnography. The patient was informed of the following findings: No significant sleep disordered breathing with an average AHI of 2.9 and a tena oxygen saturation of 89%. I explained the pathophysiology behind obstructive sleep apnea. Patient does not have sleep apnea and was advised how weight gain could increase the risk of developing sleep apnea in the future. I strongly encouraged the patient to lose weight. Patient has light snoring. Snoring can be reduced by weight loss. Snoring can also be treated with an oral appliance from a dentist. Advised to check insurance coverage. In addition, an ENT evaluation can be do to see if other treatment is indicated. Patient states he does not drink significant amount of alcohol. Patient was cautioned about risks of drowsy driving until sleepiness symptoms resolve. Sleep Study - Results Type of Sleep Study: Polysomnography Prior sleep studies: No Allergies and Home Medications Home medication list reviewed: Yes (no new meds) Review of Systems Review of systems same as previous: Yes (no changes) Physical Exam Heart Rate: 71 O2 Saturation: 98 Height: 5 ft 8 in Weight: 213 lb Body Mass Index: 32.3 BMI Classification: Obese Impression and Plan 1. Snoring but no significant sleep disordered breathing. Patient advised that often weight loss will reduce snoring as well as apnea risk. An oral appliance can also be used for snoring. This would require a dental consultation. Patient cautioned not to use other online appliances as can cause bite issues. A list of accredited dentists in [facility] and one local dentist who makes oral appliances is available in our office if desired. Patient is advised to check if insurance will cover. An ENT consult can also be helpful to determine if any other treatment is an option. Patient voiced understanding. All questions and concerns addressed during the visit today. * Attempt to lose weight * Avoid alcohol consumption near bedtime * The patient is cautioned about driving until sleepiness is completely resolved. * Return as needed. Counseling Topics: Weight loss health impact Visit Type: In Office Time Spent with Patient (minutes): 10 Provider Statement: I spent 100% of the Face to Face Visit with the patient with greater than 50% spent counseling the patient and coordination of care.
== END 2020-12-22 08:20 | disposition home or self-care (01) ==
LOC: SC 08:19
PROVIDERS: ATTEND Nurse Practitioner Family
DX: R06.83 Snoring (principal); E66.9 Obesity, unspecified; Z68.32 Body mass index [BMI] 32.0-32.9, adult
CPT/HCPCS: 99212

== ENCOUNTER 2021-05-19 09:32 | Outpatient (CLI) | payer OTHER ==
[2021-05-19] MEDS ORDERED: GADOBUTROL 10 MMOL/10 ML VIAL ONE (09:55)
--- NOTE | 2021-05-19 11:28 | MRI Report ---
PROCEDURE: Brain W/WO INDICATIONS: HEADACHE CONTRAST: IV CONTRAST: Gadavist ml: 10 TECHNIQUE: Noncontrast axial T1 spin echo, axial T2 fast spin echo, sagittal and axial FLAIR, coronal T2 fast sp in echo, axial gradient echo, axial diffusion and ADC through the brain. After the administration of contrast, axial and coronal T1 spin echo with fat saturation through the brain. COMPARISON: Correlation is made with prior head CT, 05/07/2019 FINDINGS: Image quality: Excellent. CSF spaces: Basal cisterns are patent. No extra-axial fluid collections. Ventricles are stable, wi th physiologic asymmetry seen of the lateral ventricles, left smaller than right, which is stable com pared to 2016. Brain: No midline shift. No intracranial bleeds or masses. No abnormal intracranial enhancement. There is cerebral volume loss for age. There is periventricular white matter chronic small vessel is chemic change. The brainstem appears normal. Diffusion-weighted images demonstrate no acute ischemi c insults. No chronic ischemic insults. Normal intravascular flow voids are present. Skull and face: Calvarial marrow is normal in signal. Orbits appear normal. Sinuses: Sinuses and mastoids appear clear. IMPRESSION: A cause of headache cannot be seen on these images. No masses or abnormal enhancement can be seen. Negative for hydrocephalus or brain edema. No Chiari I malformation. Reviewed by: Ori Sanchez MD on 05/19/2021 10:27 AM [facility] Approved by: Ori Sanchez MD on 05/19/2021 10:27 AM [facility] Station ID: [id number]
[2021-05-19] MEDS: GADOBUTROL 10 MMOL/10 ML VIAL IVP ONE (12:30)
== END 2021-05-19 09:33 | disposition home or self-care (01) ==
LOC: DI 09:32
PROVIDERS: ATTEND Physician Assistant
DX: R51.9 Headache, unspecified (principal)
CPT/HCPCS: 70553; A9585